=== PATIENT | female | born 1965 | race African-American/Black ===

== ENCOUNTER 2017-09-11 06:03 | Day surgery (SDC) | payer OTHER ==
[~2017-09-11] VITALS: Ht 172.7 cm; Wt 86.2 kg
[2017-09-11 07:09] VITALS: BP 120/75
[2017-09-11 12:34] VITALS: BP 123/78
== END 2017-09-11 10:55 | disposition home or self-care (01) ==
LOC: GI 06:03 → EDBD 07:30 → EDSEX 07:30 → OR 07:30 → GI 10:55
PROVIDERS: Internal Medicine Gastroenterology
PROC: 0DJD8ZZ Inspection of Lower Intestinal Tract, Via Natural or Artificial Opening Endoscopic (ICD-10-PCS; principal; 2017-09-11 07:30)
DX: K62.5 Hemorrhage of anus and rectum (principal); K64.8 Other hemorrhoids
CPT/HCPCS: 45378; J1200; J1610; J2250; J2310; J3010; J3490